=== PATIENT | male | born 1965 | race Caucasian/White ===

== ENCOUNTER 2018-02-02 13:53 | Emergency (ER) | payer BC ==
[~2018-02-02] VITALS: Ht 177.8 cm; Wt 79.0 kg
[2018-02-02 14:17] VITALS: BP 149/74; PULSE 94; RESP 20; TEMP 98.2; O2SAT 96
--- NOTE | 2018-02-02 15:03 | PD ---
HPI Chief Complaint: Cold / Flu Symptoms Time Seen by Provider: 14:51 Travel History International Travel<30 days: No Contact w/Intl Traveler<30days: No Traveled to known affect area: No History of Present Illness HPI Patient 52-year-old male presents emergency department with sore throat. Also endorses a cough and just not feeling well and states his throat feels like his burning. States he has a history of strep throat and had his tonsils removed sometime in the distant past. No nausea no vomiting no diarrhea no constipation. Symptoms for the past 2 days, gradually worsening, context as above, associated signs symptoms as above. He states his sugars been running normal for him . PFSH Past Medical History Diabetes: Yes Social History Tobacco Use: No Substance Use: No Allergies-Medications (Allergen,Severity, Reaction): Coded Allergies: No Known Allergies (Unverified , 02/02/18) Review of Systems Except as stated in HPI: all other systems reviewed are Neg Physical Exam Narrative GENERAL: Well-nourished, well-developed patient. SKIN: Focused skin assessment warm/dry. No rash no wound seen on his person HEAD: Normocephalic. Atrial EYES: No scleral icterus. No injection or drainage. ENT: TMs clear bilaterally, oropharynx shows minimal erythema without any edema uvula midline, tonsils surgically absent. NECK: Supple, trachea midline. No JVD or lymphadenopathy. CARDIOVASCULAR: Regular rate and rhythm without murmurs, gallops, or rubs. RESPIRATORY: Breath sounds equal bilaterally. No accessory muscle use. GASTROINTESTINAL: Abdomen soft, non-tender, nondistended. MUSCULOSKELETAL: No cyanosis, or edema. BACK: Nontender without obvious deformity. No CVA tenderness. Data Data Last Documented VS Vital Signs Date Time Temp Pulse Resp B/P (MAP) Pulse Ox O2 Delivery O2 Flow Rate FiO2 02/02/18 14:17 98.2 94 20 149/74 (99) 96 Orders Orders Group A Rapid Strep Screen (02/02/18 15:02) Strep Culture (Group A) (02/02/18 15:19) Ed Discharge Order (02/02/18 16:31) MDM Medical Decision Making Medical Screen Exam Complete: Yes Emergency Medical Condition: Yes Differential Diagnosis Strep throat, URI, viral illness, pneumonia unlikely. Narrative Course Patient is well nontoxic appearance, rapid strep test negative, stable for discharge and symptomatic management. Discussed return to ED criteria Diagnosis Primary Impression: URI (upper respiratory infection) Patient Instructions: General Instructions, Upper Respiratory Infection (DC) Disposition: 01 DISCHARGE HOME Condition: Stable Sampson Martinez MD February 02, 2018 15:03
== END 2018-02-02 16:37 | disposition home or self-care (01) ==
LOC: NEPD 13:53
DX: J02.9 Acute pharyngitis, unspecified (principal)
CPT/HCPCS: 87081; 87880; 99283